=== PATIENT | male | born 1995 | race Caucasian/White ===

== ENCOUNTER 2022-01-26 06:51 | Emergency (ER) | payer MEDICAID, OTHER ==
[~2022-01-26] VITALS: Ht 182.9 cm; Wt 104.5 kg
[2022-01-26] MEDS ORDERED: KETOROLAC TROMETH 30 MG/ML 1ML VIAL IV ONE (08:15)
[2022-01-26] MEDS ORDERED: BACL10TA PO (08:46)
[2022-01-26] MEDS ORDERED: IBUP800T27 PO (08:46)
[2022-01-26 08:54] VITALS: BP 128/63
== END 2022-01-26 08:53 | disposition home or self-care (01) ==
LOC: EDBD 06:51 → ER 06:51
DX: S46.912A Strain of unspecified muscle, fascia and tendon at shoulder and upper arm level, left arm, initial encounter (principal); S39.012A Strain of muscle, fascia and tendon of lower back, initial encounter; Z88.0 Allergy status to penicillin; V43.52XA Car driver injured in collision with other type car in traffic accident, initial encounter; Y93.89 Activity, other specified; Y92.410 Unspecified street and highway as the place of occurrence of the external cause; Y99.8 Other external cause status
CPT/HCPCS: 72100; 73010; 96374; 99284; J1885